=== PATIENT | female | born 1970 | race Hispanic/Latino ===

== ENCOUNTER 2019-07-07 17:24 | Inpatient (IN) | payer OTHER ==
[~2019-07-07] VITALS: Ht 152.4 cm; Wt 56.4 kg
[2019-07-07] MEDS ORDERED: ACETAMINOPHEN EXTRA STRENGTH 500 MG TABLET ONE (17:43)
[2019-07-07] MEDS ORDERED: ONDANSETRON HCL 4 MG/2 ML VIAL ONE (17:43)
[2019-07-07] MEDS ORDERED: SODIUM CHLORIDE 0.9% 1000ML 1,000 ML IV ONE ×4 (17:44→23:32)
[2019-07-07 18:02] LABS: BASOPHILS % (AUTO) 0.2 % (0.0-5.0); EOSINOPHILS % (AUTO) 0.8 % (0.0-8.0); LYMPHOCYTES % (AUTO) 3.9 % (21.0-51.0); MEAN CORPUSCULAR HEMOGLOBIN 28.1 pg (27.0-33.0); MEAN CORPUSCULAR HGB CONC 32.9 g/dL (32.0-36.0); MEAN CORPUSCULAR VOLUME 85.6 fL (79-99); MONOCYTES % (AUTO) 2.1 % (3.0-13.0); NEUTROPHILS % (AUTO) 91.8 % (40.0-77.0); PLATELET COUNT (AUTO) 184 K/uL (130-400); RED BLOOD CELL COUNT(AUTO) 3.27 MIL/uL (4.00-5.50); RED CELL DISTRIBUTION WIDTH 14.6 % (11.0-15.5)
[2019-07-07 18:07] LABS: INR 0.98 (0.85-1.15); PARTIAL THROMBOPLASTIN TIME 28.6 SEC (26.3-35.5); PROTHROMBIN TIME 10.3 SEC (9.6-11.6)
[2019-07-07 18:11] LABS: APPEARANCE,URINE Clear (CLEAR); BILIRUBIN,URINE Negative (NEGATIVE); COLOR,URINE Yellow (YELLOW); GLUCOSE, URINE (UA) >=1000 mg/dL (NEGATIVE); KETONES,URINE 40 mg/dL (NEGATIVE); LEUKOCYTE ESTERASE ,URINE Small (NEGATIVE); NITRATE,URINE Negative (NEGATIVE); OCCULT BLOOD,URINE Trace (NEGATIVE); PROTEIN,URINE Negative (NEGATIVE); UROBILINOGEN,URINE 0.2 mg/dL (0.2-1.0)
[2019-07-07 18:21] LABS: ALANINE AMINOTRANSFERASE 29 U/L (12-78); ALBUMIN 2.6 g/dL (3.5-5.0); ASPARTATE AMINOTRANSFERASE 34 U/L (10-37); BILIRUBIN,TOTAL 0.5 mg/dL (0.2-1.0); CARBON DIOXIDE 24 mmol/L (21-32); CREATINE KINASE, TOTAL 18 U/L (21-232); CREATININE 1.7 mg/dL (0.5-1.5); GLOMERULAR FILTR. RATE CALC 34 mL/min (>60); MYOGLOBIN 36 ng/mL (10-92); POTASSIUM 4.7 mmol/L (3.5-5.1); SODIUM SERUM 119 mmol/L (136-145); TOTAL PROTEIN, SERUM 7.4 g/dL (6.0-8.3); TROPONIN I < 0.04 ng/mL (0.00-0.06); UREA NITROGEN, BLOOD 28 mg/dL (7-18)
[2019-07-07 18:28] LABS: CHLORIDE 86 mmol/L (101-111)
[2019-07-07 18:29] LABS: GLUCOSE,RANDOM 592 mg/dL (70-105)
[2019-07-07 18:43] LABS: BACTERIA,URINE Moderate /HPF (None Seen); MUCUS,URINE Few LPF (None Seen); SQUAMOUS EPITHELIAL CELL,UR 0-2 /HPF (0-2)
[2019-07-07] MEDS ORDERED: CEFTRIAXONE SODIUM 2 GM VIAL ONE (19:03)
[2019-07-07] MEDS ORDERED: INSULIN HUMULIN R 100 UNIT/ML 3ML ONE (19:04)
[2019-07-07] MEDS ORDERED: SODIUM CHLORIDE 0.9% 50 ML IV ONE (19:05)
[2019-07-07 19:31] LABS: ABG HCO3 17.1 mmol/L (21.0-28.0); ABG PCO2 28 mmHg (32-45)
[2019-07-07] MEDS ORDERED: FENTANYL CITRATE PF 50 MCG/1 ML 2ML VIAL ONE ×2 (21:05→23:27)
[2019-07-07] MEDS ORDERED: ZOSYN 3.375GM+NS 50ML 50 ML IV ONE (23:26)
[2019-07-08] MEDS ORDERED: SODIUM CHLORIDE 0.9% 1000ML 1,000 ML IV SCH ×4 (00:07→21:30)
[2019-07-08] MEDS ORDERED: ACETAMINOPHEN 325 MG TAB PO PRN ×3 (00:15→21:15)
[2019-07-08] MEDS ORDERED: ONDANSETRON HCL 4 MG/2 ML VIAL IV PRN (00:15)
[2019-07-08] MEDS ORDERED: VANCOMYCIN 1GM+NS 250ML 250 ML IV SCH (00:15)
[2019-07-08] MEDS ORDERED: LACTULOSE 20 GM/30 ML UDCUP PO PRN (00:15)
[2019-07-08] MEDS ORDERED: PHARMACY COMMUNICATION MISC SCH (01:00)
[2019-07-08] MEDS ORDERED: VANCOMYCIN PROTOCOL PER PHARMACY IV SCH (01:00)
[2019-07-08] MEDS ORDERED: SODIUM CHLORIDE 0.9% 1000ML 1,000 ML IV ONE ×3 (02:03→10:16)
[2019-07-08 04:25] LABS: BASOPHILS % (AUTO) 0.4 % (0.0-5.0); EOSINOPHILS % (AUTO) 2.3 % (0.0-8.0); HEMATOCRIT 23.6 % (36-48); LYMPHOCYTES % (AUTO) 5.4 % (21.0-51.0); MEAN CORPUSCULAR HEMOGLOBIN 28.3 pg (27.0-33.0); MEAN CORPUSCULAR HGB CONC 32.2 g/dL (32.0-36.0); MEAN CORPUSCULAR VOLUME 87.7 fL (79-99); MONOCYTES % (AUTO) 3.5 % (3.0-13.0); PLATELET COUNT (AUTO) 137 K/uL (130-400); RED BLOOD CELL COUNT(AUTO) 2.69 MIL/uL (4.00-5.50); RED CELL DISTRIBUTION WIDTH 14.7 % (11.0-15.5); WHITE BLOOD COUNT (AUTO) 11.3 K/uL (4.8-10.8)
[2019-07-08 04:46] LABS: CREATININE 1.7 mg/dL (0.5-1.5); POTASSIUM 3.8 mmol/L (3.5-5.1)
[2019-07-08] MEDS ORDERED: DEXTROSE 5 %-0.45 % NACL 1,000 ML IV PRN (05:37)
[2019-07-08] MEDS ORDERED: INSULIN REGULAR, HUMAN 3ML 100 UNIT in SODIUM CHLORIDE 0.9% 99 ML IV PRN ×2 (05:45)
[2019-07-08] MEDS ORDERED: POTASSIUM CHLORIDE 10MEQ/100ML 100 ML IV PRN (05:45)
[2019-07-08 06:17] LABS: ABG BASE EXCESS -12.5 mmol/L (-2.0-3.0); ABG HCO3 11.2 mmol/L (21.0-28.0); ABG OXYGEN SATURATION 95.4 % (95.0-99.0); ABG PCO2 22 mmHg (32-45)
[2019-07-08] MEDS ORDERED: INSULIN HUMULIN R 100 UNIT/ML 3ML ONE ×2 (06:24→21:59)
[2019-07-08] MEDS ORDERED: SODIUM CHLORIDE 0.9% 100 ML IV ONE (06:24)
[2019-07-08] MEDS ORDERED: SODIUM BICARB 50MEQ 50ML VIAL ONE (07:11)
[2019-07-08] MEDS ORDERED: INSULIN HUMULIN R 100 UNIT/ML 3ML SQ SCH (07:30)
[2019-07-08] MEDS ORDERED: ZOSYN 3.375GM+NS 50ML 50 ML IV ONE ×2 (08:35→18:24)
[2019-07-08] MEDS: PANTOPRAZOLE 40 MG/VIAL IVP SCH ×2 (09:00→21:00)
[2019-07-08] MEDS: FAMOTIDINE 20MG TAB 20 MG TAB PO SCH ×2 (09:00→21:00)
[2019-07-08] MEDS ORDERED: ENOXAPARIN SODIUM 40 MG/0.4 ML SYRINGE SQ SCH (09:00)
[2019-07-08] MEDS ORDERED: INSU100I35 SQ (09:32)
[2019-07-08] MEDS ORDERED: METF-444 PO (09:32)
[2019-07-08 10:18] LABS: % IRON SATURATION 4.5 % (22-44)
[2019-07-08 10:24] LABS: CREATININE 2.1 mg/dL (0.5-1.5); POTASSIUM 3.6 mmol/L (3.5-5.1)
[2019-07-08 10:44] LABS: HEMATOCRIT 23.7 % (36-48)
[2019-07-08] MEDS ORDERED: DEXTROSE 5 %-0.45 % NACL 1,000 ML IV ONE (13:29)
[2019-07-08] MEDS ORDERED: COMPOUND IV REFRIGERATED 1 EACH IVSOLN MISC PRN (14:00)
[2019-07-08] MEDS ORDERED: VANCOMYCIN 750MG + NS 250 ML IV SCH ×2 (16:00)
[2019-07-08 16:22] LABS: CREATININE 1.7 mg/dL (0.5-1.5); POTASSIUM 3.7 mmol/L (3.5-5.1)
[2019-07-08] MEDS ORDERED: ACETAMINOPHEN 325 MG TAB ONE (17:07)
--- NOTE | 2019-07-08 17:28 | NUR ---
INITIAL SW met with patient. Patient lives with 21 year old daughter. Emergency contact is patient's sister, Kathy Sanchez, [phone]. No home services. DME: glucometer (uses insulin), shower chair. Patient is able to complete ADL's alone but gets tired. Patient drives. PCP is MD at [facility] in [place]. Pharmacy is [facility] in [place] or [facility] located in [place]. DCP is home. Patient has no insurance or benefits. She is being assisted by [employer]. Patient is not a [place] citizen or legal resident. She was provided with list of community resources for post hospitalization follow up. Patient was also provided with Good RX card for prescriptions. Addendum: 07/08/19 at 1733 by JAZMYN ARIROLA SS Amended: Links added.
[2019-07-08 18:28] LABS: BASE EXCESS,VENOUS BLOOD GAS -1.9 (-2.0-3.0); HCO3,VENOUS BLOOD GAS 21.5 (21.0-28.0); PCO2,VENOUS BLOOD GAS 33 (32-45)
[2019-07-08] MEDS: ZOSYN 3.375GM+NS 50ML 50 ML IV SCH (21:00)
[2019-07-08] MEDS ORDERED: INSULIN GLARGINE 100 UNITS/ML 10 ML VIAL SQ SCH (21:00)
[2019-07-08] MEDS ORDERED: LACTATED RINGERS 1000ML 1,000 ML IV SCH (21:15)
[2019-07-08] MEDS: SODIUM CHLORIDE 0.9% 1000ML 1,000 ML IV SCH (21:15)
[2019-07-08] MEDS ORDERED: ONDANSETRON HCL 4 MG/2 ML VIAL ONE (21:58)
[2019-07-08] MEDS ORDERED: FAMOTIDINE/PF 20 MG/2 ML VIAL IV ONE (21:58)
[2019-07-08] MEDS ORDERED: MORPHINE SULFATE 2 MG/ML 1ML SYG ONE (21:58)
[2019-07-08 22:10] LABS: BASOPHILS % (AUTO) 0.5 % (0.0-5.0); EOSINOPHILS % (AUTO) 1.5 % (0.0-8.0); HEMATOCRIT 23.9 % (36-48); LYMPHOCYTES % (AUTO) 10.8 % (21.0-51.0); MEAN CORPUSCULAR HEMOGLOBIN 28.2 pg (27.0-33.0); MEAN CORPUSCULAR HGB CONC 33.1 g/dL (32.0-36.0); MEAN CORPUSCULAR VOLUME 85.4 fL (79-99); MONOCYTES % (AUTO) 3.2 % (3.0-13.0); NEUTROPHILS % (AUTO) 80.6 % (40.0-77.0); PLATELET COUNT (AUTO) 144 K/uL (130-400); RED CELL DISTRIBUTION WIDTH 14.6 % (11.0-15.5); WHITE BLOOD COUNT (AUTO) 15.5 K/uL (4.8-10.8)
[2019-07-08 22:20] LABS: CREATININE 1.4 mg/dL (0.5-1.5); POTASSIUM 3.6 mmol/L (3.5-5.1)
[2019-07-08 23:15] VITALS: BP 96/65
[2019-07-09 03:00] VITALS: BP 85/48
[2019-07-09] MEDS: ZOSYN 3.375GM+NS 50ML 50 ML IV SCH ×4 (04:12→21:19)
[2019-07-09 05:30] LABS: BASOPHILS % (AUTO) 0.5 % (0.0-5.0); EOSINOPHILS % (AUTO) 1.6 % (0.0-8.0); HEMATOCRIT 26.3 % (36-48); LYMPHOCYTES % (AUTO) 9.2 % (21.0-51.0); MEAN CORPUSCULAR HEMOGLOBIN 27.9 pg (27.0-33.0); MEAN CORPUSCULAR HGB CONC 32.3 g/dL (32.0-36.0); MEAN CORPUSCULAR VOLUME 86.2 fL (79-99); NEUTROPHILS % (AUTO) 84.6 % (40.0-77.0); PLATELET COUNT (AUTO) 164 K/uL (130-400); RED BLOOD CELL COUNT(AUTO) 3.05 MIL/uL (4.00-5.50); RED CELL DISTRIBUTION WIDTH 14.7 % (11.0-15.5)
[2019-07-09 06:05] LABS: CREATININE 1.3 mg/dL (0.5-1.5); MAGNESIUM 1.5 mg/dL (1.80-2.40); PHOSPHORUS 2.2 mg/dL (2.5-4.9); POTASSIUM 3.6 mmol/L (3.5-5.1)
[2019-07-09] MEDS: SODIUM CHLORIDE 0.9% 1000ML 1,000 ML IV SCH ×2 (06:20→14:26)
[2019-07-09] MEDS: INSULIN HUMULIN R 100 UNIT/ML 3ML SQ SCH ×4 (06:22→20:40)
[2019-07-09 07:30] VITALS: BP 102/63
[2019-07-09] MEDS: INSULIN LISPRO 100 UNIT/ML 3ML SQ SCH ×3 (07:30→16:21)
--- NOTE | 2019-07-09 07:41 | NUR ---
PATIENT UPDATE Pt admitted for anemia, uti, with blood pressure in the low 90's systolic, map greater than 65. No fever, no shortness of breath. No abdominal nor rt flank pain, complained of headache last night but was just given morphine from ER. Was bothered by the light in the room, dimmed. Gets up to the toilet to void, on Zosyn and Vancomycin for iv antibiotics. Slept well overnight. NPO as per order, will clarify the npo status as per patient's request. Family member to bring med fr home. ON tele monitoring, running sinus tach in the low 100's overnight, continues with the hydration with NS at 100 cc/hr.
[2019-07-09] MEDS ORDERED: INSULIN LISPRO 100 UNIT/ML 3ML SQ SCH (08:00)
[2019-07-09 08:15] LABS: ABG BASE EXCESS -8.4 mmol/L (-2.0-3.0); ABG HCO3 14.5 mmol/L (21.0-28.0); ABG OXYGEN SATURATION 92.7 % (95.0-99.0); ABG PCO2 25 mmHg (32-45)
[2019-07-09] MEDS ORDERED: MAGNESIUM 2GM PREMIX 50ML 50 ML IV ONE (08:58)
[2019-07-09] MEDS: FAMOTIDINE 20MG TAB 20 MG TAB PO SCH ×2 (08:59→20:38)
[2019-07-09] MEDS: PANTOPRAZOLE 40 MG/VIAL IVP SCH ×2 (08:59→20:38)
[2019-07-09] MEDS: HYDROCODONE/ACETAMINOPHEN 5/325 MG TAB PO PRN ×2 (09:04→17:22)
[2019-07-09 10:09] LABS: HEMATOCRIT 24.9 % (36-48); MEAN CORPUSCULAR HEMOGLOBIN 28.1 pg (27.0-33.0); MEAN CORPUSCULAR HGB CONC 32.5 g/dL (32.0-36.0); MEAN CORPUSCULAR VOLUME 86.5 fL (79-99); PLATELET COUNT (AUTO) 163 K/uL (130-400); RED BLOOD CELL COUNT(AUTO) 2.88 MIL/uL (4.00-5.50); RED CELL DISTRIBUTION WIDTH 14.8 % (11.0-15.5); WHITE BLOOD COUNT (AUTO) 16.6 K/uL (4.8-10.8)
[2019-07-09 10:21] LABS: CREATININE 1.3 mg/dL (0.5-1.5); POTASSIUM 3.4 mmol/L (3.5-5.1)
[2019-07-09 11:00] VITALS: BP 92/54
[2019-07-09 15:48] VITALS: BP_SYST 79; BP_SYST 81; BP_DIAS 45; BP_DIAS 48
[2019-07-09 16:39] LABS: CREATININE 1.3 mg/dL (0.5-1.5); POTASSIUM 3.7 mmol/L (3.5-5.1)
[2019-07-09 17:35] VITALS: BP 112/72
[2019-07-09 20:26] VITALS: BP 97/59
[2019-07-09] MEDS: INSULIN GLARGINE 100 UNITS/ML 10 ML VIAL SQ SCH (20:39)
[2019-07-09] MEDS ORDERED: INSULIN GLARGINE 100 UNITS/ML 10 ML VIAL SQ SCH (21:00)
[2019-07-10] VITALS: BP 90/60
[2019-07-10] MEDS: SODIUM CHLORIDE 0.9% 1000ML 1,000 ML IV SCH ×3 (02:30→13:15)
[2019-07-10 04:00] VITALS: BP 91/60
[2019-07-10] MEDS: ZOSYN 3.375GM+NS 50ML 50 ML IV SCH ×2 (05:07→12:29)
[2019-07-10 05:10] LABS: HEMATOCRIT 24.9 % (36-48); MEAN CORPUSCULAR HEMOGLOBIN 27.9 pg (27.0-33.0); MEAN CORPUSCULAR HGB CONC 32.1 g/dL (32.0-36.0); MEAN CORPUSCULAR VOLUME 86.8 fL (79-99); PLATELET COUNT (AUTO) 170 K/uL (130-400); RED BLOOD CELL COUNT(AUTO) 2.87 MIL/uL (4.00-5.50); RED CELL DISTRIBUTION WIDTH 14.8 % (11.0-15.5); WHITE BLOOD COUNT (AUTO) 12.7 K/uL (4.8-10.8)
[2019-07-10 05:29] LABS: CREATININE 1.2 mg/dL (0.5-1.5)
[2019-07-10] MEDS: INSULIN HUMULIN R 100 UNIT/ML 3ML SQ SCH ×4 (05:47→22:01)
[2019-07-10] MEDS: POTASSIUM CHLORIDE 20MEQ/100ML 100 ML IV PRN ×2 (06:06→12:20)
[2019-07-10 07:30] VITALS: BP 101/55
[2019-07-10] MEDS: INSULIN LISPRO 100 UNIT/ML 3ML SQ SCH ×2 (07:34→12:23)
[2019-07-10] MEDS ORDERED: LIDOCAINE HCL-MPF 1% 2ML VIAL ONE ×2 (08:53→10:56)
[2019-07-10] MEDS: PANTOPRAZOLE 40 MG/VIAL IVP SCH ×2 (08:58→21:58)
[2019-07-10] MEDS: FAMOTIDINE 20MG TAB 20 MG TAB PO SCH ×2 (08:58→21:58)
[2019-07-10 11:00] VITALS: BP 99/62
[2019-07-10 16:00] VITALS: BP 111/73
[2019-07-10 19:00] VITALS: BP 110/70
[2019-07-10] MEDS: INSULIN GLARGINE 100 UNITS/ML 10 ML VIAL SQ SCH (22:00)
[2019-07-11] VITALS (7 sets, daily range): BP systolic 107–130; BP diastolic 62–82
[2019-07-11] MEDS: SODIUM CHLORIDE 0.9% 1000ML 1,000 ML IV SCH ×4 (00:23→19:29)
[2019-07-11] MEDS ORDERED: LIDOCAINE HCL-MPF 1% 2ML VIAL IV PRN (00:30)
[2019-07-11] MEDS ORDERED: POTASSIUM CHLORIDE 20MEQ/100ML 100 ML IV PRN (00:30)
[2019-07-11] MEDS ORDERED: POTASSIUM CHLORIDE 10% ELIXIR 20 MEQ/15 ML UDCUP PO PRN (00:30)
--- NOTE | 2019-07-11 02:58 | NUR ---
PATIENT UPDATE Pt tolerating the GI bland diet, no complaints of any abdominal pain, no nausea and vomiting. Continues with the ivf of NS at 125 cc/hr as per Dr. Watson. No respiratory distress, hasn't been using the oxygen per nasal cannula. Still tachycardic with heart rate in the 100 to 110's , normotensive. Afebrile, blood sugars still in the 200's, no complaints voiced out.
[2019-07-11 05:15] LABS: BASOPHILS % (AUTO) 0.3 % (0.0-5.0); HEMATOCRIT 24.6 % (36-48); LYMPHOCYTES % (AUTO) 26.3 % (21.0-51.0); MEAN CORPUSCULAR HGB CONC 32.9 g/dL (32.0-36.0); MEAN CORPUSCULAR VOLUME 85.1 fL (79-99); MONOCYTES % (AUTO) 9.6 % (3.0-13.0); NEUTROPHILS % (AUTO) 62.1 % (40.0-77.0); PLATELET COUNT (AUTO) 184 K/uL (130-400); RED BLOOD CELL COUNT(AUTO) 2.89 MIL/uL (4.00-5.50); RED CELL DISTRIBUTION WIDTH 14.6 % (11.0-15.5); WHITE BLOOD COUNT (AUTO) 6.9 K/uL (4.8-10.8)
[2019-07-11 05:32] LABS: CREATININE 0.9 mg/dL (0.5-1.5); MAGNESIUM 1.7 mg/dL (1.80-2.40); POTASSIUM 3.1 mmol/L (3.5-5.1)
[2019-07-11] MEDS: INSULIN HUMULIN R 100 UNIT/ML 3ML SQ SCH ×4 (06:09→20:24)
[2019-07-11] MEDS: POTASSIUM CHLORIDE 20 MEQ ERTAB PO PRN ×2 (06:16→10:18)
[2019-07-11] MEDS: MAGNESIUM 2GM PREMIX 50ML 50 ML IV SCH (06:17)
--- NOTE | 2019-07-11 06:43 | NUR ---
ELECTROLYTES REPLACEMENT K+ AT 3.1 THIS AM DESPITE THE 40MEQ KCL IVPB ADMINISTERED FROM YESTERDAY. PT ALREADY ON THE GI BLAND DIET, PLACED ON THE PO HYPOKALEMIA PROTOCOL. 20MEQ KDUR GIVEN FOR THE 1ST ONE OUT 3 REPLACEMENT PER PO PROTOCOL. MG IS AT 1.7, 2GMS OF MGSO4 STARTED PER PROTOCOL.
[2019-07-11] MEDS: INSULIN LISPRO 100 UNIT/ML 3ML SQ SCH ×3 (07:47→16:55)
[2019-07-11] MEDS: FAMOTIDINE 20MG TAB 20 MG TAB PO SCH ×2 (10:18→19:27)
[2019-07-11] MEDS: LEVOFLOXACIN 750 MG/D5W 150 ML 150 ML IV SCH (10:18)
[2019-07-11] MEDS: PANTOPRAZOLE SODIUM 40 MG TABLET.DR PO SCH ×2 (10:18→16:54)
[2019-07-11] MEDS: MORPHINE SULFATE 2 MG/ML 1ML SYG IV PRN ×2 (16:54→23:38)
[2019-07-11] MEDS: INSULIN GLARGINE 100 UNITS/ML 10 ML VIAL SQ SCH (19:28)
[2019-07-12 04:00] VITALS: BP 118/66
[2019-07-12] MEDS: POTASSIUM CHLORIDE 20 MEQ ERTAB PO PRN ×2 (04:48→17:36)
[2019-07-12] MEDS: POTASSIUM CHLORIDE 20MEQ/100ML 100 ML IV PRN (04:49)
[2019-07-12] MEDS: INSULIN LISPRO 100 UNIT/ML 3ML SQ SCH ×3 (05:39→17:27)
[2019-07-12] MEDS: INSULIN HUMULIN R 100 UNIT/ML 3ML SQ SCH ×4 (05:39→21:31)
[2019-07-12] MEDS: MAGNESIUM 2GM PREMIX 50ML 50 ML IV SCH (06:00)
[2019-07-12] MEDS: PANTOPRAZOLE SODIUM 40 MG TABLET.DR PO SCH ×2 (06:00→08:42)
[2019-07-12 06:28] LABS: CREATININE 0.8 mg/dL (0.5-1.5); MAGNESIUM 1.6 mg/dL (1.80-2.40); POTASSIUM 3.6 mmol/L (3.5-5.1)
[2019-07-12 07:30] VITALS: BP 121/73
[2019-07-12] MEDS: LEVOFLOXACIN 750 MG/D5W 150 ML 150 ML IV SCH (08:42)
[2019-07-12] MEDS: FAMOTIDINE 20MG TAB 20 MG TAB PO SCH ×2 (08:42→21:28)
[2019-07-12 11:00] VITALS: BP 118/76
[2019-07-12] MEDS: SODIUM CHLORIDE 0.9% 1000ML 1,000 ML IV SCH ×3 (13:15→21:15)
[2019-07-12 16:00] VITALS: BP 135/80
[2019-07-12 19:00] VITALS: BP 135/80
[2019-07-12] MEDS: INSULIN GLARGINE 100 UNITS/ML 10 ML VIAL SQ SCH (21:30)
[2019-07-12] MEDS: HYDROCODONE/ACETAMINOPHEN 5/325 MG TAB PO PRN (23:51)
[2019-07-13] VITALS (7 sets, daily range): BP systolic 107–139; BP diastolic 59–85
[2019-07-13] MEDS: SODIUM CHLORIDE 0.9% 1000ML 1,000 ML IV SCH ×3 (05:15→17:48)
[2019-07-13 05:25] LABS: BASOPHILS % (AUTO) 0.3 % (0.0-5.0); EOSINOPHILS % (AUTO) 1.9 % (0.0-8.0); HEMATOCRIT 22.9 % (36-48); LYMPHOCYTES % (AUTO) 47.1 % (21.0-51.0); MEAN CORPUSCULAR HGB CONC 32.3 g/dL (32.0-36.0); MEAN CORPUSCULAR VOLUME 86.7 fL (79-99); MONOCYTES % (AUTO) 10.6 % (3.0-13.0); PLATELET COUNT (AUTO) 242 K/uL (130-400); RED BLOOD CELL COUNT(AUTO) 2.64 MIL/uL (4.00-5.50); WHITE BLOOD COUNT (AUTO) 6.4 K/uL (4.8-10.8)
[2019-07-13 05:36] LABS: CREATININE 0.9 mg/dL (0.5-1.5); POTASSIUM 3.9 mmol/L (3.5-5.1)
[2019-07-13] MEDS: INSULIN HUMULIN R 100 UNIT/ML 3ML SQ SCH ×4 (06:48→21:00)
[2019-07-13] MEDS: INSULIN LISPRO 100 UNIT/ML 3ML SQ SCH ×3 (07:30→17:08)
[2019-07-13] MEDS: FERROUS SULFATE 325 MG TABLET.DR PO SCH (09:19)
[2019-07-13] MEDS: LEVOFLOXACIN 750 MG/D5W 150 ML 150 ML IV SCH (09:19)
[2019-07-13] MEDS: PANTOPRAZOLE SODIUM 40 MG TABLET.DR PO SCH ×2 (09:19→17:03)
[2019-07-13] MEDS: FAMOTIDINE 20MG TAB 20 MG TAB PO SCH ×2 (12:23→22:36)
[2019-07-13] MEDS: HYDROCODONE/ACETAMINOPHEN 5/325 MG TAB PO PRN (12:25)
[2019-07-13] MEDS ORDERED: INSULIN GLARGINE 100 UNITS/ML 10 ML VIAL SQ SCH (21:00)
[2019-07-13] MEDS: MORPHINE SULFATE 2 MG/ML 1ML SYG IV PRN (22:36)
[2019-07-14 04:00] VITALS: BP 112/69
[2019-07-14] MEDS: INSULIN HUMULIN R 100 UNIT/ML 3ML SQ SCH ×3 (06:39→16:26)
[2019-07-14] MEDS: INSULIN LISPRO 100 UNIT/ML 3ML SQ SCH ×3 (06:39→16:27)
[2019-07-14 08:00] VITALS: BP 127/60
[2019-07-14] MEDS: FERROUS SULFATE 325 MG TABLET.DR PO SCH (09:11)
[2019-07-14] MEDS: PANTOPRAZOLE SODIUM 40 MG TABLET.DR PO SCH ×2 (09:11→16:26)
[2019-07-14] MEDS: FAMOTIDINE 20MG TAB 20 MG TAB PO SCH (09:12)
[2019-07-14] MEDS: SODIUM CHLORIDE 0.9% 1000ML 1,000 ML IV SCH ×2 (09:17→13:15)
[2019-07-14 12:00] VITALS: BP 142/82
[2019-07-14 15:41] VITALS: BP 143/79
--- NOTE | 2019-07-14 16:18 | NUR ---
Discharge instructions, prescriptions, and follow up appointments reviewed. Patient given prescriptions for Levofloxacin and Insulin 70/30. Patient verbalized undestading and repeating instructions verbally. PIV to LFA removed, catheter intact, bleeding controlled, and dressing applied. Telemetry leads removed. Patient stated was waiting for ride to arrive and would call for wheelchair when ready.
== END 2019-07-14 17:10 | disposition home or self-care (01) | DRG 871 ==
LOC: EDH 17:24 → EDHIP 17:25 → 3CH 07-08 22:38
PROVIDERS: ADMIT Internal Medicine; ATTEND Internal Medicine
DX: A41.50 Gram-negative sepsis, unspecified (principal); R65.21 Severe sepsis with septic shock; E11.10 Type 2 diabetes mellitus with ketoacidosis without coma; N17.0 Acute kidney failure with tubular necrosis; J96.01 Acute respiratory failure with hypoxia; E87.1 Hypo-osmolality and hyponatremia; I31.3 Pericardial effusion (noninflammatory); N10 Acute pyelonephritis; N30.80 Other cystitis without hematuria; E11.22 Type 2 diabetes mellitus with diabetic chronic kidney disease; B96.20 Unspecified Escherichia coli [E. coli] as the cause of diseases classified elsewhere; D63.8 Anemia in other chronic diseases classified elsewhere; E11.649 Type 2 diabetes mellitus with hypoglycemia without coma; E86.0 Dehydration; J40 Bronchitis, not specified as acute or chronic; N18.9 Chronic kidney disease, unspecified; N20.9 Urinary calculus, unspecified; Z87.440 Personal history of urinary (tract) infections; Z79.4 Long term (current) use of insulin; Z90.49 Acquired absence of other specified parts of digestive tract; Z90.710 Acquired absence of both cervix and uterus
CPT/HCPCS: 36415; 36600; 71045; 74176; 76705; 76770; 80048; 80053; 81001; 82270; 82550; 82803; 82948; 83036; 83540; 83550; 83605; 83735; 83874; 83880; 84100; 84145; 84484; 85014; 85018; 85025; 85027; 85610; 85730; 86850; 86900; 86901; 87040; 87077; 87088; 87186; 87804; 93005; 93306; 93356; 99291; C9113; G0378; J0696; J1815; J1956; J2405; J2543; J3010; J3370; J3475; J3480; J3490; J7030; J7042